=== PATIENT | female | born 1980 | race Caucasian/White ===

== ENCOUNTER 2017-12-21 15:38 | Emergency (ER) | payer MEDICAID, OTHER ==
[2017-12-21 15:38] VITALS: BMI 39.1
[2017-12-21 15:46] VITALS: BP 106/75; PULSE 64; RESP 19; TEMP 97.6; O2SAT 100
[2017-12-21 16:47] LABS: HCG,QUALITATIVE URINE NEGATIVE (NEGATIVE)
[2017-12-21 16:52] LABS: SQUAMOUS EPITHIAL 3 /hpf (0-5); URINE BILIRUBIN NEGATIVE (NEGATIVE); URINE BLOOD 3+ (NEGATIVE); URINE CLARITY Hazy (Clear); URINE COLOR Yellow (YELLOW); URINE GLUCOSE (UA) NORMAL (Normal); URINE LEUKOCYTE ESTERASE 3+ Leu/uL (Negative); URINE NITRATE NEGATIVE (NEGATIVE); URINE PROTEIN 1+ mg/dL (NEGATIVE); URINE UROBILINOGEN NORMAL mg/dL (0.2-1.0)
--- NOTE | 2017-12-21 17:10 | C.PDOC ---
Time Seen by Provider: 12/21/17 16:11 Chief Complaint (Nursing): Female Genitourinary History Per: Patient Onset/Duration Of Symptoms: Days (1) Current Symptoms Are (Timing): Still Present Severity: Moderate Associated Symptoms: Urinary Symptoms Alleviating Factors: None Additional History Per: Prior Records Past Medical History Reviewed: Historical Data, Nursing Documentation, Vital Signs Vital Signs: Last Vital Signs Temp 97.6 F 12/21/17 15:42 Pulse 64 12/21/17 15:42 Resp 19 12/21/17 15:42 BP 106/75 12/21/17 15:42 Pulse Ox 100 12/21/17 15:42 - Medical History PMH: Anemia, HTN, Sleep Apnea (C-PAP) Surgical History: Tonsillectomy (05/04/16) Other Surgeries: Gastric Sleeve - [facility] Procedures LOW CERVICAL (09/20/13) Family History: States: Unknown Family Hx - Social History Hx Tobacco Use: No Hx Alcohol Use: No Hx Substance Use: No - Immunization History Hx Tetanus Toxoid Vaccination: No Hx Influenza Vaccination: No Hx Pneumococcal Vaccination: No Review Of Systems Except As Marked, All Systems Reviewed And Found Negative. Constitutional: Negative for: Fever Cardiovascular: Negative for: Chest Pain Respiratory: Negative for: Shortness of Breath Gastrointestinal: Negative for: Vomiting, Abdominal Pain, Diarrhea Genitourinary: Positive for: Dysuria, Frequency, Hematuria Musculoskeletal: Negative for: Neck Pain Skin: Negative for: Rash Neurological: Negative for: Weakness, Numbness Physical Exam - Physical Exam Appears: Non-toxic, No Acute Distress Skin: Normal Color, Warm, Dry, No Rash Head: Atraumatic, Normacephalic Eye(s): bilateral: Normal Inspection, PERRL, EOMI Neck: Normal ROM, Supple Cardiovascular: Rhythm Regular Respiratory: Normal Breath Sounds, No Accessory Muscle Use Gastrointestinal/Abdominal: Soft, No Tenderness Back: No CVA Tenderness Extremity: Normal ROM Neurological/Psych: Oriented x3, Normal Motor, Normal Sensation ED Course And Treatment - Laboratory Results Interpretation Of Abnormal: UTI, urine C&S sent. Urine POC: Negative O2 Sat by Pulse Oximetry: 100 Pulse Ox Interpretation: Normal Disposition Counseled Patient/Family Regarding: Studies Performed, Diagnosis, Need For Followup, Rx Given - Disposition Referrals: Shreya Pope MD [Medical Doctor] - Disposition: HOME/ ROUTINE Disposition Time: 17:09 Condition: STABLE Additional Instructions: Drink plenty of fluids. Follow up with your doctor this week. Return to the ER if you develop fever, chills, vomiting, worsening of symptoms or if you have any other concerns. Prescriptions: Ciprofloxacin [Cipro] 1 tab PO BID #10 tab Instructions: Urinary Tract Infection in Women (ED) - Clinical Impression Clinical Impression: UTI (urinary tract infection)
== END 2017-12-21 17:23 | disposition home or self-care (01) ==
LOC: C.ER 15:38
DX: N39.0 Urinary tract infection, site not specified (principal)

== ENCOUNTER 2018-03-12 07:51 | Emergency (ER) | payer MEDICAID ==
[2018-03-12 07:51] VITALS: BMI 39.1
[2018-03-12] MEDS ORDERED: Sodium Chloride 0.9% 1,000 ML IV ONE (08:34)
[2018-03-12] MEDS ORDERED: Sodium Chloride 0.9% 1,000 ML ONE (08:51)
[2018-03-12 09:18] LABS: BASO # 0.1 K/uL (0.0-0.2); BASO % 1.3 % (0.0-2.0); EOS % 0.6 % (0.0-4.0); HEMOGLOBIN 11.9 g/dL (11.0-16.0); LYMPH # 0.9 K/uL (1.0-4.3); LYMPH % 14.9 % (20.0-40.0); MEAN CELL VOLUME 78.2 fL (81.0-99.0); MEAN CORPUSCULAR HEMOGLOBIN 26.7 pg (27.0-31.0); MEAN CORPUSCULAR HGB CONC 34.1 g/dL (33.0-37.0); MONO # 0.4 K/uL (0.0-0.8); MONO % 7.4 % (0.0-10.0); NEUT # 4.4 K/uL (1.8-7.0); NEUT % 75.8 % (50.0-75.0); NRBC % 0.2 % (0.0-2.0); RBC 4.45 Mil/uL (3.80-5.20); RED CELL DISTRIBUTION WIDTH 14.2 % (11.5-14.5); WHITE BLOOD COUNT 5.8 K/uL (4.8-10.8)
[2018-03-12 09:29] LABS: ALT/SGPT 15 U/L (9-52); AST/SGOT 19 U/L (14-36); BLOOD UREA NITROGEN 14 mg/dL (7-17); CALCIUM 8.9 mg/dl (8.6-10.4); GFR AFRICAN-AMERICAN > 60; GFR NON-AFRICAN AMERICAN > 60
[2018-03-12 09:32] LABS: SQUAMOUS EPITHIAL 3 /hpf (0-5); URINE BILIRUBIN NEGATIVE (NEGATIVE); URINE BLOOD 2+ (NEGATIVE); URINE CLARITY Clear (Clear); URINE COLOR Yellow (YELLOW); URINE GLUCOSE (UA) NORMAL (Normal); URINE LEUKOCYTE ESTERASE NEG Leu/uL (Negative); URINE PROTEIN NEGATIVE (NEGATIVE); URINE UROBILINOGEN NORMAL mg/dL (0.2-1.0)
--- NOTE | 2018-03-12 10:09 | C.PDOC ---
History Of Present Illness 37-year-old female, presents to the emergency department with complaints of three day duration of fever, body aches, sore throat, headache and cough. Patient took Ibuprofen at home with improvement. Patient denies nausea/vomiting , recent travel, chest pain or shortness of breath. No other complaints at this time. Time Seen by Provider: 03/12/18 08:16 Chief Complaint (Nursing): Fever History Per: Patient History/Exam Limitations: no limitations Current Symptoms Are (Timing): Still Present Past Medical History Reviewed: Historical Data, Nursing Documentation, Vital Signs Vital Signs: Last Vital Signs Temp 98.2 F 03/12/18 10:18 Pulse 82 03/12/18 10:18 Resp 18 03/12/18 10:35 BP 126/86 03/12/18 10:18 Pulse Ox 100 03/12/18 10:49 - Medical History PMH: Anemia, HTN, Sleep Apnea Denies: Chronic Kidney Disease Surgical History: Tonsillectomy (05/04/16) - [facility] Procedures LOW CERVICAL (09/20/13) Family History: States: No Known Family Hx - Social History Hx Tobacco Use: No Hx Alcohol Use: No Hx Substance Use: No - Immunization History Hx Tetanus Toxoid Vaccination: No Hx Influenza Vaccination: No Hx Pneumococcal Vaccination: No Review Of Systems Constitutional: Positive for: Fever, Malaise ENT: Positive for: Throat Pain. Negative for: Ear Pain, Nose Congestion Cardiovascular: Negative for: Chest Pain Respiratory: Positive for: Cough. Negative for: Shortness of Breath Gastrointestinal: Negative for: Vomiting Musculoskeletal: Negative for: Back Pain Neurological: Positive for: Headache. Negative for: Weakness, Numbness Physical Exam - Physical Exam Appears: Non-toxic, No Acute Distress Skin: Normal Color, Warm, Dry, No Rash Head: Normacephalic Eye(s): bilateral: PERRL Nose: Normal Oral Mucosa: Moist Lips: Normal Appearing Neck: Normal ROM Cardiovascular: Rhythm Regular, No Murmur Respiratory: Normal Breath Sounds, No Accessory Muscle Use Gastrointestinal/Abdominal: Soft, No Tenderness, No Guarding, No Rebound Extremity: Normal ROM, No Deformity, No Swelling Neurological/Psych: Oriented x3, Normal Speech ED Course And Treatment - Laboratory Results Result Diagrams: 03/12/18 09:05 03/12/18 09:05 O2 Sat by Pulse Oximetry: 100 (RA) Pulse Ox Interpretation: Normal Medical Decision Making Medical Decision Making: Impression: Viral Syndrome Plan: * CMP * CBC * CXR * IVF, Toradol, Tylenol, Zithromax * Influenza AB * UA/U-preg * Reassess and disposition Disposition Counseled Patient/Family Regarding: Studies Performed, Diagnosis, Need For Followup, Rx Given - Disposition Disposition: HOME/ ROUTINE Disposition Time: 10:07 Condition: STABLE Additional Instructions: follow up with your doctor in 2 days call to make an appointment take medications as prescribed return to ER if symptoms worsens or progress take ibuprofen or tylenol as needed for fever Prescriptions: Azithromycin [Zithromax] 250 mg PO DAILY #4 tab Benzonatate [Tessalon Perles] 100 mg PO BID PRN #14 tab PRN Reason: Cough Pseudoephedrine HCl [Sudafed] 30 mg PO QID PRN #14 tablet PRN Reason: Nasal Congestion Instructions: Acute Bronchitis Forms: General Discharge Instructions, [facility] (Vietnamese), Work Excuse - Clinical Impression Clinical Impression: Bronchitis - Scribe Statement The provider has reviewed the documentation as recorded by the Scribe (Sukumar Howell) All medical record entries made by the Scribe were at my direction and personally dictated by me. I have reviewed the chart and agree that the record accurately reflects my personal performance of the history, physical exam, medical decision making, and the department course for this patient. I have also personally directed, reviewed, and agree with the discharge instructions and disposition.
[2018-03-12 10:19] VITALS: BP 126/86; PULSE 82; RESP 18; TEMP 98.2
--- NOTE | 2018-03-12 10:19 | RAD ---
HISTORY: SOB COMPARISON: Comparison chest dated 11/06/2015 TECHNIQUE: Chest PA and lateral FINDINGS: LUNGS: No active pulmonary disease. PLEURA: No significant pleural effusion identified. No pneumothorax apparent. CARDIOVASCULAR: Normal. OSSEOUS STRUCTURES: No significant abnormalities. VISUALIZED UPPER ABDOMEN: Normal. OTHER FINDINGS: None. IMPRESSION: No active disease.
[2018-03-12 10:45] VITALS: O2SAT 100
== END 2018-03-12 10:35 | disposition home or self-care (01) ==
LOC: C.ER 07:51
DX: J40 Bronchitis, not specified as acute or chronic (principal)
CPT/HCPCS: 71046; 80053; 81001; 84703; 85025; 87804; 96361; 96374; 99284; J1885; J7040

== ENCOUNTER 2018-06-25 16:09 | Emergency (ER) | payer MEDICAID ==
[2018-06-25 16:23] VITALS: BMI 32.8
[2018-06-25 16:26] VITALS: BP 150/85; PULSE 62; RESP 18; TEMP 98.3; O2SAT 100
--- NOTE | 2018-06-25 16:38 | C.PDOC ---
History Of Present Illness 38-year-old female, presents to the emergency department with complaints of an itchy rash to the arms and neck. Patient denies any nausea/vomiting, known allergen exposure, fever or recent travel. Patient did not take anything to help relieve her symptoms. No other complaints at this time. Time Seen by Provider: 06/25/18 16:27 Chief Complaint (Nursing): Abnormal Skin Integrity History Per: Patient History/Exam Limitations: no limitations Past Medical History Reviewed: Historical Data, Nursing Documentation, Vital Signs Vital Signs: Last Vital Signs Temp 98.3 F 06/25/18 16:24 Pulse 62 06/25/18 16:24 Resp 18 06/25/18 16:24 BP 150/85 06/25/18 16:24 Pulse Ox 100 06/25/18 20:39 - Medical History PMH: Anemia, HTN, Sleep Apnea Denies: Chronic Kidney Disease Surgical History: Tonsillectomy (05/04/16) - [facility] Procedures LOW CERVICAL (09/20/13) Family History: States: No Known Family Hx - Social History Hx Tobacco Use: No Hx Alcohol Use: No Hx Substance Use: No - Immunization History Hx Tetanus Toxoid Vaccination: No Hx Influenza Vaccination: No Hx Pneumococcal Vaccination: No Review Of Systems Constitutional: Negative for: Fever Respiratory: Negative for: Cough Gastrointestinal: Negative for: Nausea, Vomiting Skin: Positive for: Rash Neurological: Negative for: Headache Physical Exam - Physical Exam Appears: Non-toxic, No Acute Distress Skin: Warm, Dry, Rash (urticarial rash to arm and neck) Head: Atraumatic, Normacephalic Eye(s): bilateral: Normal Inspection Nose: Normal Oral Mucosa: Moist Lips: Normal Appearing Neck: Normal ROM Chest: Symmetrical Cardiovascular: Rhythm Regular, No Murmur Respiratory: Normal Breath Sounds, No Accessory Muscle Use Extremity: Normal ROM, No Deformity, No Swelling Neurological/Psych: Oriented x3, Normal Speech ED Course And Treatment O2 Sat by Pulse Oximetry: 100 Pulse Ox Interpretation: Normal (RA) Medical Decision Making Medical Decision Making: Plan: Pt treated with Benadryl, Pepcid and Prednisone with improvement of rash. She will be discharged for outpatient f/u with PMD. Disposition Counseled Patient/Family Regarding: Diagnosis, Need For Followup - Disposition Referrals: Shreya Pope MD [Medical Doctor] - Disposition: HOME/ ROUTINE Disposition Time: 16:34 Condition: STABLE Additional Instructions: Take Benadryl for any itching Take Prednisone to help with rash Follow up with your doctor if rash persists longer than one week Prescriptions: DiphenhydrAMINE [Benadryl] 25 mg PO Q4 PRN #30 cap PRN Reason: Rash predniSONE [predniSONE Tab] 40 mg PO DAILY #10 tab Instructions: Hives (DC) Forms: [employer] (Latvian) - POA Present On Arrival: None - Clinical Impression Clinical Impression: Urticaria - Scribe Statement The provider has reviewed the documentation as recorded by the Scribe (Sukumar Howell) All medical record entries made by the Scribe were at my direction and personally dictated by me. I have reviewed the chart and agree that the record accurately reflects my personal performance of the history, physical exam, medical decision making, and the department course for this patient. I have also personally directed, reviewed, and agree with the discharge instructions and disposition.
== END 2018-06-25 17:03 | disposition home or self-care (01) ==
LOC: C.ER 16:09
DX: L50.9 Urticaria, unspecified (principal); I10 Essential (primary) hypertension

== ENCOUNTER 2019-03-02 08:16 | Outpatient (CLI) | payer MEDICAID | END 2019-03-02 08:17 | disposition home or self-care (01) | LOC: C.CARD 08:16 | DX: R07.89 Other chest pain (principal) ==